=== PATIENT | female | born 1980 | race Hispanic/Latino ===

== ENCOUNTER 2017-10-06 13:07 | Day surgery (SDC) | payer OTHER ==
[2017-10-06 13:27] VITALS: BMI 26.9
[2017-10-06 13:41] LABS: BASO % 0.7 % (0.0-2.0); EOS # 0.1 K/uL (0.0-0.7); HEMATOCRIT 38.8 % (34.0-47.0); LYMPH # 1.6 K/uL (1.0-4.3); LYMPH % 28.8 % (20.0-40.0); MEAN CELL VOLUME 83.1 fL (81.0-99.0); MEAN CORPUSCULAR HEMOGLOBIN 28.5 pg (27.0-31.0); MEAN CORPUSCULAR HGB CONC 34.3 g/dL (33.0-37.0); MEAN PLATELET VOLUME 8.7 fL (7.2-11.7); MONO # 0.3 K/uL (0.0-0.8); MONO % 6.1 % (0.0-10.0); NRBC % 0.1 % (0.0-2.0); RED CELL DISTRIBUTION WIDTH 13.3 % (11.5-14.5); WHITE BLOOD COUNT 5.5 K/uL (4.8-10.8)
--- NOTE | 2017-10-06 14:33 | US ---
Indication: Patient is in same-day surgery, stat OR Comparison: Pelvic ultrasound performed 05/05/14 Technique: Transvaginal pelvic ultrasound Findings: The uterus measures approximately 12.0 x 5.9 x 8.2 cm. Anteverted. Cervix length measures approximately 4.1 cm. There is a single intrauterine fetus present. The gestational sac measures 5.3 cm and is compatible with a gestational age of 11 weeks 1 day. The crown-rump length measures 1.9 cm and is compatible with a gestational age of 8 weeks 3 days. Yolk sac is not visualized. heart motion was not detected during this examination. The right ovary measures 2.6 x 1.5 x 2.3 cm and contains probable corpus luteal cyst measuring approximately 2.0 x 1.4 x 1.9 cm. The left ovary measures 3.4 x 1.0 x 2.0 cm. Blood flow was demonstrated to both ovaries. Impression: Single intrauterine consistent with gestational age 11 weeks 1 day by gestational sac calculation and 8 weeks 3 days by crown-rump length calculation. Yolk sac is not visualized. heart motion was not detected during this examination. Correlate clinically. Probable 2 cm right corpus luteal cyst. Six week ultrasound follow-up may be considered to assess for resolution.
[2017-10-06] MEDS ORDERED: Sodium Citrate/Citric Acid 15 ml Sol ONE (16:09)
[2017-10-06] MEDS ORDERED: Lactated Ringer's 1,000 ML IV ONE ×2 (16:17)
[2017-10-06] MEDS ORDERED: Propofol 10 mg/ml Inj (20 ML) ONE (16:21)
[2017-10-06] MEDS ORDERED: Doxycycline 100 mg Inj ONE (16:30)
[2017-10-06] MEDS ORDERED: HYDROmorphone 0.5 mg/0.5 ml ISec IVP PRN (17:21)
--- NOTE | 2017-10-06 18:01 | PCM.SURG1 ---
Surgeon's Initial Post Op Note - Surgeon's Notes Surgeon: Dr. Livier Rutherford Industrial Security Analyst: none Type of Anesthesia: General LMA Pre-Operative Diagnosis: missed at 10 weeks gestation Operative Findings: uterus, retroverted approx 10 weeks gestation Post-Operative Diagnosis: same Operation Performed: suction dilatation and curettage Specimen/Specimens Removed: products of conception Estimated Blood Loss: EBL {In ML}: 100 Blood Products Given: N/A Drains Used: No Drains Post-Op Condition: Good Date of Surgery/Procedure: 10/06/17 Time of Surgery/Procedure: 05:30
[2017-10-06 18:53] VITALS: BP 109/70
[2017-10-06 19:19] VITALS: PULSE 86; RESP 15; TEMP 98.2; O2SAT 99
--- NOTE | 2017-10-07 03:15 | OP ---
PROCEDURE DATE: 10/06/2017 PREOPERATIVE DIAGNOSIS: Missed at 10 weeks' gestation. POSTOPERATIVE DIAGNOSIS: Missed at 10 weeks' gestation. PROCEDURE: Suction dilatation and curettage. SURGEON: Livier Rutherford MD. TYPE OF ANESTHESIA: General LMA. INTRAOPERATIVE FINDINGS: Uterus retroverted, approximately 10 weeks' gestation. ESTIMATED BLOOD LOSS: 100 mL. BLOOD PRODUCTS: No blood replaced. DRAIN: There were no drains. SPECIMEN REMOVED: Product of conception. POSTOPERATIVE CONDITION: Good. PREOPERATIVE ANTIBIOTICS: Doxycycline 200 mg were given IV prior to procedure. DESCRIPTION OF PROCEDURE: After all relevant documentation was reviewed and signed by , and it was confirmed by ultrasound findings that there was no , the patient was taken back to the OR. She was prepped and draped in the usual sterile manner, and after bimanual examination, a bivalved speculum was used to get excellent visualization of the cervix. The anterior lip of the cervix was then grasped with a single-tooth tenaculum and the cervix was then gently dilated until a 10-mm curette was introduced. After most of the products of conception were removed with the 10-mm curette, a 7-mm curette was then used to confirm that there was an excellent gritty texture and there was no remaining products of conception. Bedside ultrasound also confirmed very thin endometrial lining and no remaining products of conception. All the instruments were removed and the patient was then taken back to the recovery room in stable condition. All lap counts and instrument counts were correct x2. Livier Rutherford MD
== END 2017-10-06 20:10 | disposition home or self-care (01) ==
LOC: C.OPSURG 13:07
PROVIDERS: ATTEND Obstetrics & Gynecology
DX: O02.1 Missed abortion (principal)
CPT/HCPCS: 36415; 59820; 76817; 84703; 85025; 86850; 86900; J1170; J2704; J2765; J3010; J7120

== ENCOUNTER 2017-11-27 09:46 | Emergency (ER) | payer OTHER ==
[2017-11-27 09:46] VITALS: BMI 26.9
[2017-11-27 10:03] VITALS: BP 113/77; PULSE 102; RESP 18; TEMP 98.3; O2SAT 98
--- NOTE | 2017-11-27 10:32 | C.PDOC ---
History Of Present Illness 37 year old female presents to the ER with a complaint of redness and itchiness to the right eye that began this morning. Denies fever or cough. Time Seen by Provider: 11/27/17 09:56 Chief Complaint (Nursing): Eye Problem History Per: Patient History/Exam Limitations: no limitations Onset/Duration Of Symptoms: Hrs Current Symptoms Are (Timing): Still Present Injury To Eye?: No Wears Contact Lens?: No Associated Symptoms: Itching Recent travel outside of the [place]: No Past Medical History Reviewed: Historical Data, Nursing Documentation, Vital Signs Vital Signs: Last Vital Signs Temp 98.3 F 11/27/17 10:02 Pulse 102 H 11/27/17 10:02 Resp 18 11/27/17 10:02 BP 113/77 11/27/17 10:02 Pulse Ox 98 11/27/17 10:32 Surgical History: Endoscopy Family History: States: Unknown Family Hx - Social History Hx Tobacco Use: No Hx Alcohol Use: Yes Hx Substance Use: No - Immunization History Hx Tetanus Toxoid Vaccination: No Hx Influenza Vaccination: No Hx Pneumococcal Vaccination: No Review Of Systems Except As Marked, All Systems Reviewed And Found Negative. Constitutional: Negative for: Fever Eyes: Positive for: Redness, Other (Itchiness) Respiratory: Negative for: Cough Physical Exam - Physical Exam Additional Physical Exam Comments: Appears: Well Appearing. Non-toxic. Skin: No rash. Head: Atraumatic. Normacephalic. Eye(s): Right conjunctiva injection with perilimbic sparing, clear discharge, no purulence. ED Course And Treatment O2 Sat by Pulse Oximetry: 98 Disposition - Disposition Referrals: Grayson Espana [Staff Provider] - Disposition: HOME/ ROUTINE Disposition Time: 10:31 Condition: STABLE Prescriptions: Polymyxin/Trimethoprim Sulfate [Polytrim Ophth Soln] 1 drop OU Q3H #1 bottle Instructions: Conjunctivitis ([place]) Forms: [facility] (Turkish), Work Excuse - Clinical Impression Clinical Impression: Conjunctivitis - Scribe Statement The provider has reviewed the documentation as recorded by the Scribe Lazaro Alford All medical record entries made by the Scribe were at my direction and personally dictated by me. I have reviewed the chart and agree that the record accurately reflects my personal performance of the history, physical exam, medical decision making, and the department course for this patient. I have also personally directed, reviewed, and agree with the discharge instructions and disposition.
== END 2017-11-27 10:36 | disposition home or self-care (01) ==
LOC: C.ER 09:46
DX: H10.9 Unspecified conjunctivitis (principal)

== ENCOUNTER 2017-11-30 04:20 | Emergency (ER) | payer OTHER ==
[2017-11-30 04:20] VITALS: BMI 26.9
[2017-11-30] MEDS ORDERED: DiphenhydrAMINE 50 mg/ml Inj IVP STA (05:16)
--- NOTE | 2017-11-30 05:18 | C.PDOC ---
History Of Present Illness 37 year old female presents to the ER with a complaint of a headache that began today, associated with nausea. Patient reports she had an allergy flare up yesterday for which she took claritin with improvement; however, she reports at 01:00 she woke up with a pressure like headache. Patient has a Hx of migraine and notes she usually takes motrin, applies an ice bag, and lays in the dark, however, it did not work tonight which prompted visit. Denies vomiting, abdominal pain, change in vision, fever, or chills. Time Seen by Provider: 11/30/17 04:44 Chief Complaint (Nursing): Headache History Per: Patient History/Exam Limitations: no limitations Onset/Duration Of Symptoms: Hrs Current Symptoms Are (Timing): Still Present Quality: Pressure Preceeding Symptoms: None Associated Symptoms: Photophobia, Nausea. denies: Blurred Vision, Vomiting, Extremity Weakness Recent travel outside of the [place]: No Past Medical History Reviewed: Historical Data, Nursing Documentation, Vital Signs Vital Signs: Last Vital Signs Temp 97.7 F 11/30/17 04:29 Pulse 92 H 11/30/17 04:29 Resp 20 11/30/17 04:29 BP 124/89 11/30/17 04:29 Pulse Ox 99 11/30/17 06:27 Surgical History: Endoscopy Family History: States: Unknown Family Hx - Social History Hx Tobacco Use: No Hx Alcohol Use: Yes Hx Substance Use: No - Immunization History Hx Tetanus Toxoid Vaccination: No Hx Influenza Vaccination: No Hx Pneumococcal Vaccination: No Review Of Systems Constitutional: Negative for: Fever, Chills Gastrointestinal: Positive for: Nausea. Negative for: Vomiting, Abdominal Pain Neurological: Positive for: Headache Physical Exam - Physical Exam Appears: Non-toxic Skin: Normal Color, Warm, Dry Head: Atraumatic, Normacephalic, Tenderness (Frontal sinus tenderness) Eye(s): bilateral: Normal Inspection, PERRL, EOMI Ear(s): Bilateral: Normal Oral Mucosa: Moist Throat: No Erythema, No Exudate Neck: Normal ROM, Supple Chest: Symmetrical, No Tenderness Cardiovascular: Rhythm Regular, No Friction Rub, No Murmur Respiratory: Normal Breath Sounds, No Rales, No Rhonchi, No Wheezing Gastrointestinal/Abdominal: Soft, No Tenderness Back: Normal Inspection, No CVA Tenderness Extremity: Normal ROM (x4), No Tenderness, No Swelling Neurological/Psych: Oriented x3, Normal Speech, Normal Motor Gait: Steady ED Course And Treatment - Laboratory Results Result Diagrams: 11/30/17 05:31 11/30/17 05:31 O2 Sat by Pulse Oximetry: 99 (Room air) Pulse Ox Interpretation: Normal - CT Scan/US CT Head Other Rad Studies (CT/US): Read By Radiologist, Radiology Report Reviewed CT/US Interpretation: IMPRESSION: No evidence of an acute intracranial hemorrhage, midline shift or mass effect is identified. Medical Decision Making Medical Decision Making: CT head and urinalysis ordered. Benadryl, reglan, and toradol administered. On re-exam, the patient reports improvement of symptoms. Lungs are CTA, heart is RRR, abdomen is soft, non-tender and the patient is tolerating PO well. Ambulatory in the ED with steady gait. Follow up with the medical doctor within 1-2 days. Return if worsened. Disposition - Disposition Referrals: Papi Mcelroy MD [Staff Provider] - Disposition: HOME/ ROUTINE Disposition Time: 06:23 Condition: GOOD Additional Instructions: . Follow up with the medical doctor within 1-2 days. Return if worsened. Prescriptions: Amoxicillin/Clavulanate [Augmentin 875 MG-125 MG] 1 tab PO BID #14 tab Fluticasone Nasal [Flonase] 1 spr NS BID #1 spr Ibuprofen [Motrin] 600 mg PO TID #21 tab Metoclopramide [Reglan] 1 tab PO TID PRN #25 tab PRN Reason: Nausea/Vomiting Instructions: Sinusitis in Adults Forms: [facility] (Nepalese) - Clinical Impression Clinical Impression: Sinusitis - PA / [employer] INSTRUCTOR / Resident Statement MD/DO has reviewed & agrees with the documentation as recorded. - Scribe Statement The provider has reviewed the documentation as recorded by the Scribe Lazaro Alford All medical record entries made by the Scribe were at my direction and personally dictated by me. I have reviewed the chart and agree that the record accurately reflects my personal performance of the history, physical exam, medical decision making, and the department course for this patient. I have also personally directed, reviewed, and agree with the discharge instructions and disposition.
[2017-11-30] MEDS ORDERED: DiphenhydrAMINE 50 mg/ml Inj ONE (05:31)
[2017-11-30 05:39] LABS: BASO # 0.1 K/uL (0.0-0.2); BASO % 1.1 % (0.0-2.0); EOS # 0.3 K/uL (0.0-0.7); EOS % 4.6 % (0.0-4.0); HEMOGLOBIN 12.5 g/dL (11.0-16.0); LYMPH # 2.3 K/uL (1.0-4.3); LYMPH % 31.9 % (20.0-40.0); MEAN CELL VOLUME 83.1 fL (81.0-99.0); MEAN CORPUSCULAR HEMOGLOBIN 27.7 pg (27.0-31.0); MEAN CORPUSCULAR HGB CONC 33.3 g/dL (33.0-37.0); MONO # 0.4 K/uL (0.0-0.8); MONO % 5.9 % (0.0-10.0); NEUT % 56.5 % (50.0-75.0); RBC 4.53 Mil/uL (3.80-5.20); RED CELL DISTRIBUTION WIDTH 13.2 % (11.5-14.5); WHITE BLOOD COUNT 7.1 K/uL (4.8-10.8)
[2017-11-30 05:41] LABS: SQUAMOUS EPITHIAL 1 /hpf (0-5); URINE BILIRUBIN NEGATIVE (NEGATIVE); URINE CLARITY Clear (Clear); URINE COLOR Yellow (YELLOW); URINE GLUCOSE (UA) NORMAL (Normal); URINE LEUKOCYTE ESTERASE NEG Leu/uL (Negative); URINE NITRATE NEGATIVE (NEGATIVE); URINE PROTEIN NEGATIVE (NEGATIVE); URINE UROBILINOGEN NORMAL mg/dL (0.2-1.0)
[2017-11-30 05:42] LABS: HCG,QUALITATIVE URINE NEGATIVE (NEGATIVE)
[2017-11-30 05:43] LABS: URINE BLOOD NEGATIVE (NEGATIVE)
[2017-11-30 05:57] LABS: ALB/GLOB RATIO 1.1 (1.0-2.1); ALBUMIN 3.5 g/dL (3.5-5.0); ALT/SGPT 17 U/L (9-52); AST/SGOT 16 U/L (14-36); BLOOD UREA NITROGEN 12 mg/dL (7-17); CALCIUM 8.6 mg/dl (8.6-10.4); GFR AFRICAN-AMERICAN > 60; GFR NON-AFRICAN AMERICAN > 60
--- NOTE | 2017-11-30 06:15 | CT ---
EXAM: CT Head Without Intravenous Contrast CLINICAL HISTORY: 37 years old, female; Pain; Headache; Patient HX: 06-04-16; Additional info: Headche, facial pressure TECHNIQUE: Axial computed tomography images of the head/brain without intravenous contrast. All CT scans at this facility use one or more dose reduction techniques, viz.: automated exposure control; ma/kV adjustment per patient size (including targeted exams where dose is matched to indication; i.e. head); or iterative reconstruction technique. 352 images are submitted. Coronal and sagittal reformatted images were created and reviewed. Axial reformatted images were created and reviewed. COMPARISON: CT - HEAD W/O CONTRAST 2016-06-04 15:17 FINDINGS: Brain: Right basal ganglia calcification. No hemorrhage. No significant white matter disease. Ventricles: Unremarkable. No ventriculomegaly. Bones/joints: Unremarkable. No acute fracture. Soft tissues: Unremarkable. Sinuses: Patchy sinus disease. Right maxillary sinus mucus retention cyst and/or polyp. Mastoid air cells: Unremarkable. No mastoid effusion. IMPRESSION: No evidence of an acute intracranial hemorrhage, midline shift or mass effect is identified.
[2017-11-30] MEDS ORDERED: Amoxicillin-Clav 875-125 mg Tab PO STA (06:17)
[2017-11-30] MEDS ORDERED: Amoxicillin-Clav 875-125 mg Tab PO ONE (06:26)
[2017-11-30 06:46] VITALS: BP 104/68; PULSE 77; RESP 16; TEMP 98; O2SAT 98
== END 2017-11-30 06:51 | disposition home or self-care (01) ==
LOC: C.ER 04:20
DX: J32.9 Chronic sinusitis, unspecified (principal)
CPT/HCPCS: 70450; 80053; 81001; 84703; 85025; 96374; 96375; 99284; J1200; J1885; J2765